=== PATIENT | female | born 1980 | race Caucasian/White ===

== ENCOUNTER 2022-04-13 14:44 | Emergency (ER) | payer OTHER, SELFPAY ==
[2022-04-13] VITALS (7 sets, daily range): BP systolic 128–179; BP diastolic 86–105; PULSE 75–108; RESP 16; TEMP 36.8; O2SAT 98–100; BMI 37.8
--- NOTE | 2022-04-13 14:50 | DI.RAD.S_ITS ---
PROCEDURE: XR CHEST 2V INDICATIONS: cough, SOB TECHNIQUE: 2 views of the chest were acquired. COMPARISON: None. FINDINGS: Surgical changes and devices: None. Lungs and pleura: Lungs are clear. No pleural effusions or pneumothorax. Mediastinum: Mediastinal contours are normal. Heart size is normal. Bones and chest wall: No suspicious bony abnormalities. Soft tissues appear unremarkable. IMPRESSION: Normal two view chest x-ray Approved by: Thierno Olson M.D. on 04/13/2022 at 14:29
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
[2022-04-13] MEDS: ALBUTEROL/IPRATROPIUM 3 ML AMPUL INH ×2 (18:23→19:07)
[2022-04-13 18:56] LABS: Influenza A - CEPHEID Flu A NEGATIVE (NEGATIVE); Influenza B - CEPHEID Flu B NEGATIVE (NEGATIVE); Respiratory Syncytial Virus Negative (Negative)
[2022-04-13 19:00] LABS: COVID-19 CEPHEID 4-PLEX PCR Negative (Negative)
[2022-04-13] MEDS: predniSONE 20 MG TABLET 60 MG PO (19:32)
== END 2022-04-13 20:09 | disposition home or self-care (01) ==
PROVIDERS: Emergency Provider Student in an Organized Health Care Education/Training Program
DX: J06.9 Acute upper respiratory infection, unspecified (principal)
CPT/HCPCS: 0241U; 71046; 99283

== ENCOUNTER 2022-11-27 01:36 | Emergency (ER) | payer OTHER, SELFPAY ==
[2022-11-27 01:43] VITALS: BP 127/85; PULSE 77; RESP 18; TEMP 36.6; O2SAT 99; BMI 36.3
--- NOTE | 2022-11-27 01:46 | ED_ITS ---
HPI - General Adult General Chief complaint: Dental/Oral Stated complaint: Plastic stuck in mouth Time Seen by Provider: 11/27/22 01:39 Source: patient Mode of arrival: Ambulatory Limitations: no limitations History of Present Illness HPI narrative: Patient is a 42-year-old female who is here for evaluation of plastic that is stuck in her mouth. She states that she was using ?polymorph plastic beads she states that they are beads can be purchased [id number] that you warm up and then can be used to make molds. She was trying to make a mold of her mouth. She stated that in the process of this the plastic trunk and now it is stuck to her mouth. No problems breathing. No problems swallowing. Related Data Previous Rx's Medication Instructions Recorded ondansetron 4 mg disintegrating 4 mg sublingual Q6HP PRN ##10 08/18/16 tablet (Zofran ODT) albuterol sulfate 90 mcg/actuation 2 puff inhalation Q4-6H PRN 04/13/22 aerosol inhaler shortness of breath or wheezing #8.5 grams Allergies Allergy/AdvReac Type Severity Reaction Status Date / Time Iodine and Iodide Containing Allergy Unknown RASH Unverified 07/13/17 12:35 Produc [IODINE AND IODIDE CONTAINING PRODUC] Review of Systems Constitutional Constitutional: Reports system reviewed and no additional complaints, except as documented ENT Ears, Nose, Mouth, and Throat: Reports system reviewed and no additional complaints, except as documented Integumentary/Breasts Skin/Breast: Reports system reviewed and no additional complaints, except as documented Patient History Social History Smoking Status: Never smoker Substance Use Type: marijuana Exam Initial Vital Signs Initial Vital Signs: Vital Signs Temperature 97.9 F 11/27/22 01:43 Pulse Rate 77 11/27/22 01:43 Respiratory Rate 18 11/27/22 01:43 Blood Pressure 127/85 11/27/22 01:43 Pulse Oximetry 99 11/27/22 01:43 Oxygen Delivery Method Room Air 11/27/22 01:43 Const General: cooperative and comfortable HENMT Mouth: lip normal and other (Thick plastic material adhered to the maxilla) Resp Effort & Inspection: normal respiratory effort Skin General: no rashes or lesions noted Course Vital Signs Vital signs: Vital Signs - 8 hr 11/27/22 01:43 Temperature 97.9 F Pulse Rate 77 Respiratory Rate 18 Blood Pressure 127/85 Pulse Oximetry 99 Oxygen Delivery Method Room Air Medical Decision Making MDM Narrative Medical decision making narrative: No respiratory distress. No problems tolerating secretions. She has a very thick layer of plastic material that completely encompasses the maxilla. It has the appearance of a football mouth piece. It is non movable. I did discuss the case with Dr. March on-call with here nose throat who thought that this would be better handled by oral maxillofacial. We then discuss the case with Dr. Jose de la fuente with oral maxillofacial surgery who stated that if the patient has having no respiratory distress and tolerating secretions that she can follow-up with a general dentist to have this removed. I did discuss this with the patient. I tried to remove some of it here with a rongeur however we were unable to do so. I was able to debulk a very small portion of it with a blade. We also tried warm water and this did seem to loosen it up somewhat to the point to where if she did this for an extended period of time she maybe able to remove it in small amounts. Unfortunately there is no indication for emergent transfer and there is not much more I can offer her here in the emergency department. She felt comfortable going home and continuing with the warm water to have it removed. She was given return precautions. She expressed understanding and agreement. Discharge Plan Departure Patient Disposition: Home Clinical Impression: Foreign body in oral cavity Activity Restrictions/Additional Instructions: I do recommend that you continue to use the warm water. You may need to ultimately see a dentist. You can contact [facility] in [place] for this. Prescriptions: No Action ondansetron [Zofran ODT] 4 MG tablet,disintegrating 4 mg Sublingual Q6HP PRNQty: 10 0RF albuterol sulfate 90 mcg/actuation HFA aerosol inhaler 2 puff inhalation Q4-6H PRN (Reason: shortness of breath or wheezing) Qty: 8.5 0RF Stand Alone Forms: Patient Portal/API
--- NOTE | 2022-11-27 01:53 | PC.NURSE ---
Patient used plastic polymorph beads to make a tooth mold for Halloween; plastic shrunk and stuck to her upper teeth; she is unable to loosen it or remove it.
== END 2022-11-27 02:32 | disposition home or self-care (01) ==
PROVIDERS: Emergency Provider Emergency Medicine
DX: T18.0XXA Foreign body in mouth, initial encounter (principal)
CPT/HCPCS: 99281; 99283

== ENCOUNTER 2024-01-20 01:34 | Emergency (ER) | payer OTHER, SELFPAY ==
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
[2024-01-20 01:54] VITALS: BP 165/93; PULSE 83; RESP 16; TEMP 36.4; O2SAT 97; BMI 33.3
[2024-01-20 03:19] VITALS: BP 148/79; PULSE 70; RESP 17; O2SAT 98
[2024-01-20 03:23] VITALS: BP 141/88; PULSE 72; O2SAT 100
[2024-01-20 03:30] VITALS: BP 130/81; PULSE 66; O2SAT 98
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
[2024-01-20 04:01] VITALS: PULSE 78; O2SAT 98
[2024-01-20 04:02] VITALS: BP 139/82; PULSE 65; RESP 18; O2SAT 97
== END 2024-01-20 04:34 | disposition home or self-care (01) ==
PROVIDERS: Emergency Provider Emergency Medicine
DX: S06.0X0A Concussion without loss of consciousness, initial encounter (principal); W19.XXXA Unspecified fall, initial encounter
CPT/HCPCS: 70450; 99281; 99284

== ENCOUNTER → 2024-06-28 08:09 | Outpatient (CLI) | payer OTHER, SELFPAY ==
--- NOTE | 2024-06-28 08:10 | DI.ECHO.S_ITS ---
[facility] : : [address] : : [place] : : [id number] : : Phone: [phone] Echocardiogram Report + + :Name: JANUSZ NOBLES Study Date: 06/28/2024 Height: 64 in : :[facility] ReadingLocation: Weight: 194 lb : : Gender: Female BSA: 1.9 m2 : :: 1980 Age: 44 yrs BP: 127/85 mmHg: :Reason For Study: SYNCOPE AND COLLAPSE : :Ordering Physician: Stanislaw DARLINGformed By: Xochitl Roper : :Referring: DONNA DARLING : + + Interpretation Summary The ejection fraction is estimated to be 50-55%. Diastolic parameters suggest probable normal left ventricular diastolic function and normal filling pressures. The right ventricle is normal in size and function. No valvular abnormalities. Pulmonary artery pressures cannot be estimated because of the lack of a measurable TR jet velocity but the IVC suggests a CVP of around 3 mmHg. Procedure: A two-dimensional transthoracic echocardiogram with color flow and Doppler was performed. The study quality was technically adequate. There is no prior echocardiogram noted for this patient. The patient was in sinus bradycardia with heart rates between 56-73 bpm during the exam. Left Ventricle: The left ventricle is normal in size and wall thickness. The ejection fraction is estimated to be 50-55%. Diastolic parameters suggest probable normal left ventricular diastolic function and normal filling pressures. Right Ventricle: The right ventricle is normal in size and function. Atria: The left atrial size is normal. Right atrial size is normal. There is no Doppler evidence for an interatrial shunt. Mitral Valve: The mitral valve is normal. There is trace mitral regurgitation. Aortic Valve: The aortic valve is trileaflet. The aortic valve opens well. There is no aortic valve stenosis. There is trace aortic regurgitation. Tricuspid Valve: The tricuspid valve leaflets are thin and pliable. There is trace tricuspid regurgitation. Pulmonary artery pressures cannot be estimated because of the lack of a measurable TR jet velocity but the IVC suggests a CVP of around 3 mmHg. Pulmonic Valve: The pulmonic valve leaflets are thin and pliable; valve motion is normal. There is no pulmonic valvular regurgitation. Great Vessels: The aortic root is normal size. The dimensions of the ascending aorta are normal. The IVC is of normal diameter and collapses greater than 50% with a sniff. This suggests a low right atrial pressure of 3 mm Hg. Pericardium/ Pleura There is no pericardial effusion. There is no pleural effusion. MMode/2D Measurements & Calculations LVIDd: 4.8 cm LVOT diam: 2.2 cm LVIDs: 3.2 cm Ao root diam: 2.7 cm FS: 33.6 % asc Aorta Diam: 2.8 cm EPSS: 0.41 cm Ao Arch Diam (Prox Trans): 2.6 cm IVSd: 0.85 cm LVPWd: 0.75 cm LV chen. diameter/BSA (cm/m^2): 2.5 LV sys. diameter/BSA (cm/m^2): 1.7 LA A2 area: 20.6 cm2 RA long axis: 4.1 cm LA A4 area: 13.7 cm2 RA area: 14.5 cm2 LA length (vol): 4.3 cm RA vol: 43.3 ml LA vol: 56.0 ml RA : 22.4 ml/m2 LA vol index: 29.0 ml/m2 IVC diam: 1.7 cm RVD1 (basal): 3.3 cm RVD2 (mid): 2.9 cm TAPSE: 1.7 cm Doppler Measurements & Calculations Ao V2 max: 128.4 cm/sec LVOT Max Jayesh: 103.2 cm/sec Ao V2 mean: 87.2 cm/sec LV V1 max P.3 mmHg Ao max P.6 mmHg LV V1 VTI: 20.9 cm Ao mean P.4 mmHg CHIKA(I,D): 3.0 cm2 Ao V2 VTI: 27.4 cm CHIKA(V,D): 3.2 cm2 sev ratio: 0.76 CHIKA indexed to BSA (cm^2/m^2): 1.6 MV E max jayesh: 79.7 cm/sec TR max jayesh: 236.7 cm/sec MV A max jayesh: 60.4 cm/sec TR max P.4 mmHg MV E/A: 1.3 PA V2 max: 116.1 cm/sec Med Peak E' Jayesh: 9.2 cm/sec PA V2 mean: 74.5 cm/sec E/E' med: 8.7 PA mean P.6 mmHg Lat Peak E' Jayesh: 14.1 cm/sec PA pr(Accel): 28.9 mmHg E/E' lat: 5.6 E/e' average: 7.2 MV dec time: 0.14 sec SV(LVOT): 82.1 ml Reading Physician:09:09 PM
== END ==
PROVIDERS: Referring Provider Internal Medicine Cardiovascular Disease; Visit Provider Internal Medicine Cardiovascular Disease
DX: R55 Syncope and collapse (principal)
CPT/HCPCS: 93306